=== PATIENT | male | born 1945 | race African-American/Black ===

== ENCOUNTER 2017-08-28 15:34 | Emergency (ER) | payer MEDICARE ==
[2017-08-28 16:20] LABS: #Basophils 0.1 thou/uL (0.0-0.2); #Eosinphils 0.2 thou/uL (0.0-0.7); #Lymphocytes 1.6 thou/uL (1.20-3.40); #Monocytes 0.7 thou/uL (0.11-0.59); #Neutrophils 3.9 thou/uL (1.40-6.50); %Basophils 1.2 % (0.0-1.0); %Eosinophils 2.6 % (0.0-10.0); %Lymphocytes 24.9 % (21.0-51.0); %Monocytes 10.1 % (0.0-10.0); %Neutrophils 61.3 % (42.0-75.0); Hemoglobin 13.1 g/dL (14.0-18.0); Mean Corpuscular HGB CONC 32.2 g/dL (32.0-36.0); Mean Corpuscular Hemoglobin 30.5 pg (27.0-31.0); Mean Corpuscular Volume 94.6 fl (80.0-94.0); Mean Platelet Volume 6.8 fL (7.4-10.4); Platelet Count 271 thou/uL (130-400); RBC Distribution Width 12.1 % (11.5-14.5); White Blood Cell (WBC) Count 6.4 thou/uL (4.8-10.8)
[2017-08-28 16:39] LABS: ALT (SGPT) 16 U/L (8-55); AST (SGOT) 17 U/L (5-34); Albumin 4.7 g/dL (3.4-4.8); Alkaline Phosphatase 86 U/L (40-150); Anion Gap 11 mmol/L (10-20); BUN (Urea Nitrogen) 19 mg/dL (8.4-25.7); Bilirubin, Total 0.8 mg/dL (0.2-1.2); CK (CPK) 196 U/L (30-200); Calc. Creatinine Clearance 0 mL/min (70-130); Carbon Dioxide 29 mmol/L (23-31); Chloride 104 mmol/L (98-107); Estimated GFR-MDRD 74; Globulin 3.5 g/dL (2.4-3.5); Glucose 125 mg/dL (80-115); Potassium 3.8 mmol/L (3.5-5.1); Protein, Total 8.2 g/dL (5.8-8.1); Sodium 140 mmol/L (136-145)
[2017-08-28 16:43] LABS: Troponin I Less than 0.010 ng/mL (< 0.028)
--- NOTE | 2017-08-28 17:30 | RAD ---
FRONTAL VIEW CHEST: CLINICAL HISTORY: Chest pain. COMPARISON: 09/10/2016 FINDINGS: A left-sided cardiac pacing device remains in place. There is no consolidation or effusion. The car diac silhouette is stable. No additional significant interval change. IMPRESSION: Stable chest. POS: [facility]
[2017-08-28 20:11] LABS: Troponin I Less than 0.010 ng/mL (< 0.028)
--- NOTE | 2017-10-10 12:46 | EKG ---
Test Reason : CHEST PAIN Blood Pressure : / mmHG Vent. Rate : 066 BPM Atrial Rate : 326 BPM P-R Int : 000 ms QRS Dur : 142 ms QT Int : 436 ms P-R-T Axes : 000 -75 061 degrees QTc Int : 457 ms Demand pacemaker; interpretation is based on intrinsic rhythm Atrial fibrillation with premature ventricular or aberrantly conducted complexes Left axis deviation Right bundle branch block Abnormal ECG Confirmed by SARAVANAN HARE, NIKKI ([id number]), tape editor AMINAH EDWARDS ([id number]) on 10/10/2017 12:45:40 PM Referred By: Confirmed By:NIKKI COE MD
== END 2017-08-28 20:36 | disposition home or self-care (01) ==
LOC: ERS 15:34
DX: R07.9 Chest pain, unspecified (principal); E11.9 Type 2 diabetes mellitus without complications; E78.5 Hyperlipidemia, unspecified; I10 Essential (primary) hypertension; I69.30 Unspecified sequelae of cerebral infarction; Z79.84 Long term (current) use of oral hypoglycemic drugs; Z79.82 Long term (current) use of aspirin; Z79.899 Other long term (current) drug therapy
CPT/HCPCS: 36415; 71045; 80053; 82553; 84484; 85025; 93005

== ENCOUNTER 2017-10-01 17:47 | Emergency (ER) | payer MEDICARE ==
[2017-10-01] MEDS ORDERED: Ondansetron ODT 4 MG TAB ONE (18:33)
[2017-10-01] MEDS ORDERED: Morphine 4 MG/ML VIAL ONE (18:33)
[2017-10-01 18:58] LABS: Hemoglobin 13.1 g/dL (14.0-18.0); Mean Corpuscular HGB CONC 32.5 g/dL (32.0-36.0); Mean Corpuscular Hemoglobin 29.7 pg (27.0-31.0); Mean Corpuscular Volume 91.6 fl (80.0-94.0); Mean Platelet Volume 7.3 fL (7.4-10.4); Platelet Count 196 thou/uL (130-400); Red Blood Cell (RBC) Count 4.39 mill/uL (4.70-6.10); White Blood Cell (WBC) Count 16.4 thou/uL (4.8-10.8)
[2017-10-01 19:06] LABS: INR-International Normal Ratio 2.5; Prothrombin Time 28.3 SEC (12.0-14.7)
[2017-10-01 19:18] LABS: ALT (SGPT) 14 U/L (8-55); AST (SGOT) 18 U/L (5-34); Albumin 4.6 g/dL (3.4-4.8); Alkaline Phosphatase 82 U/L (40-150); Anion Gap 18 mmol/L (10-20); BUN (Urea Nitrogen) 21 mg/dL (8.4-25.7); Bilirubin, Total 1.6 mg/dL (0.2-1.2); Calc. Creatinine Clearance 0 mL/min (70-130); Calcium 10.2 mg/dL (7.8-10.44); Carbon Dioxide 24 mmol/L (23-31); Chloride 100 mmol/L (98-107); Estimated GFR-MDRD 68; Globulin 4.1 g/dL (2.4-3.5); Glucose 169 mg/dL (80-115); Potassium 3.6 mmol/L (3.5-5.1); Protein, Total 8.7 g/dL (5.8-8.1); Sodium 138 mmol/L (136-145)
[2017-10-01 19:19] LABS: Band 2 % (5-11); Lymphocytes 2 % (21-51); MDiff Complete? YES; Monocytes 2 % (0-10); Neutrophil 94 % (42-75); PLT Morphology Comment Appears Adequate
--- NOTE | 2017-10-01 22:27 | ULT ---
TESTICULAR ULTRASOUND: Date: 10/01/17 INDICATION: Scrotal swelling. TECHNIQUE: Lovett scale, color Doppler, and spectral Doppler images were obtained of the testicles. FINDINGS: Right testicle measures 4.8 x 2.3 x 2.1 cm. Left testicle measures 4.5 x 1.8 x 2.7 cm. There is incre ased vascular flow to the right testicle, as well as the right epididymis. Mildly septated cyst is se en within the left epididymal head measuring 1.3 cm. There is normal vascular flow to the left testic le. Incidental note is made of a small right hydrocele. IMPRESSION: 1. Findings of right epididymoorchitis with small right hydrocele. 2. Left epididymal head cyst. POS: [facility]
== END 2017-10-01 23:03 | disposition home or self-care (01) ==
LOC: ERS 17:47
DX: N45.1 Epididymitis (principal); N50.3 Cyst of epididymis; N43.3 Hydrocele, unspecified; E11.9 Type 2 diabetes mellitus without complications; E78.5 Hyperlipidemia, unspecified; I10 Essential (primary) hypertension; Z86.73 Personal history of transient ischemic attack (TIA), and cerebral infarction without residual deficits; Z79.84 Long term (current) use of oral hypoglycemic drugs; Z79.899 Other long term (current) drug therapy
CPT/HCPCS: 36415; 76870; 80053; 83605; 85025; 85610; 85730; 86850; 86900; 86901; 93005; 93976; 96361; 96374; J2270; Q0162

== ENCOUNTER 2017-11-12 13:40 | Emergency (ER) | payer MEDICARE ==
[2017-11-12 15:36] LABS: Bilirubin Negative (Negative); Blood, Urine Moderate (Negative); Clarity CLOUDY (Clear); Glucose, Urine (Dipstick) Negative (Negative); Leukocyte Large (Negative); Nitrite Positive (Negative); Protein, Urine (Dipstick) 30 mg/dL (Neg-Trace); Specific Gravity, Urine 1.018 (1.002-1.036)
[2017-11-12 15:38] LABS: Bacteria/HPF 4+ HPF (None Seen); Pathc Cast-AUWi Flag 0.29 (0-2.49); Squamous Epithelial 0-3 HPF (0-3)
[2017-11-12 16:28] LABS: Hemoglobin 12.5 g/dL (14.0-18.0); Mean Corpuscular HGB CONC 34.2 g/dL (32.0-36.0); Mean Corpuscular Hemoglobin 30.9 pg (27.0-31.0); Mean Corpuscular Volume 90.4 fL (78.0-98.0); Mean Platelet Volume 6.6 fL (7.4-10.4); Platelet Count 184 thou/uL (130-400); RBC Distribution Width 11.8 % (11.5-14.5); Red Blood Cell (RBC) Count 4.04 mill/uL (4.70-6.10); White Blood Cell (WBC) Count 8.3 thou/uL (4.8-10.8)
[2017-11-12 16:46] LABS: ALT (SGPT) 10 U/L (8-55); AST (SGOT) 13 U/L (5-34); Albumin 4.3 g/dL (3.4-4.8); Alkaline Phosphatase 79 U/L (40-150); Anion Gap 15 mmol/L (10-20); BUN (Urea Nitrogen) 13 mg/dL (8.4-25.7); Bilirubin, Total 1.3 mg/dL (0.2-1.2); Calc. Creatinine Clearance 0 mL/min (70-130); Calcium 9.6 mg/dL (7.8-10.44); Carbon Dioxide 24 mmol/L (23-31); Chloride 105 mmol/L (98-107); Estimated GFR-MDRD 79; Globulin 3.4 g/dL (2.4-3.5); Glucose 136 mg/dL (80-115); Potassium 3.5 mmol/L (3.5-5.1); Protein, Total 7.7 g/dL (5.8-8.1); Sodium 140 mmol/L (136-145)
[2017-11-12 16:48] LABS: Band 18 % (5-11); Eosinophils 1 % (0-10); Lymphocytes 4 % (21-51); MDiff Complete? YES; Monocytes 5 % (0-10); Neutrophil 70 % (42-75); Reactive Lymphocytes 2 % (0-10)
[2017-11-12] MEDS ORDERED: cefTRIAXone\\ROCEPHIN 1 GM VIAL ONE (17:07)
--- NOTE | 2017-11-12 19:07 | ULT ---
BILATERAL TESTICULAR ULTRASOUND WITH DOPPLER: (Lovett scale, color flow, and spectral Doppler) Date: 11/12/17 HISTORY: Testicular pain. FINDINGS: The right testis measures 2.9 x 3.6 x 1.7 cm. The left testis measures 2.7 x 3.5 x 1.8 cm. No testicu lar mass or microlithiasis is seen. No hydroceles are noted on either side. The right epididymis measures 1.0 x 1.1 cm. The left epididymis measures 1.4 x 1.6 cm. There are garo cent cysts in the left epididymal head measuring 9.0 and 8.0 mm, respectively. This together may repr esent a septated cyst. There is increased flow in the right epididymis. Symmetric flow is seen to bot h testicles. There are extratesticular tortuous vascular structures with increased flow during Valsalva consistent with bilateral varicoceles. IMPRESSION: 1. Right epididymitis. 2. Left epididymal head cysts. 3. Bilateral varicoceles. POS: [facility]
[2017-11-15 05:15] LABS: Chlamydia trachomatis by NAA Negative (Negative)
== END 2017-11-12 19:48 | disposition home or self-care (01) ==
LOC: ERS 13:40
DX: N45.1 Epididymitis (principal); E11.9 Type 2 diabetes mellitus without complications; E78.5 Hyperlipidemia, unspecified; I10 Essential (primary) hypertension; Z86.73 Personal history of transient ischemic attack (TIA), and cerebral infarction without residual deficits; Z79.899 Other long term (current) drug therapy; Z79.01 Long term (current) use of anticoagulants
CPT/HCPCS: 36415; 76870; 80053; 81003; 81015; 85025; 87077; 87086; 87186; 87491; 87591; 93976; 96365; J0696

== ENCOUNTER 2018-07-26 16:43 | Emergency (ER) | payer MEDICARE ==
[2018-07-26 19:33] LABS: #Eosinphils 0.1 thou/uL (0.0-0.7); #Lymphocytes 1.8 thou/uL (1.20-3.40); #Monocytes 0.6 thou/uL (0.11-0.59); #Neutrophils 3.9 thou/uL (1.40-6.50); %Basophils 0.4 % (0.0-1.0); %Eosinophils 2.1 % (0.0-10.0); %Lymphocytes 28.5 % (21.0-51.0); %Monocytes 8.6 % (0.0-10.0); %Neutrophils 60.4 % (42.0-75.0); Hemoglobin 12.4 g/dL (14.0-18.0); Mean Corpuscular HGB CONC 31.8 g/dL (32.0-36.0); Mean Corpuscular Hemoglobin 30.5 pg (27.0-31.0); Platelet Count 235 thou/uL (130-400); Red Blood Cell (RBC) Count 4.07 mill/uL (4.70-6.10); White Blood Cell (WBC) Count 6.4 thou/uL (4.8-10.8)
--- NOTE | 2018-07-26 19:41 | RAD ---
CHEST ONE VIEW: 07/26/18 HISTORY: Pain. COMPARISON: 09/10/16. FINDINGS: Left sided transvenous pacemaker with lead position in the right atrium and right ventricle. Atherosc lerosis of the aorta. Normal cardiac silhouette. No masses or consolidation. No pneumothorax or osseo us abnormalities. IMPRESSION: No acute cardiopulmonary process. POS: [facility]
[2018-07-26 19:56] LABS: ALT (SGPT) 13 U/L (8-55); AST (SGOT) 16 U/L (5-34); Albumin 4.4 g/dL (3.4-4.8); Alkaline Phosphatase 73 U/L (40-150); Anion Gap 14 mmol/L (10-20); BUN (Urea Nitrogen) 15 mg/dL (8.4-25.7); Calc. Creatinine Clearance 0 mL/min (70-130); Calcium 10.2 mg/dL (7.8-10.44); Carbon Dioxide 28 mmol/L (23-31); Chloride 105 mmol/L (98-107); Estimated GFR-MDRD 75; Globulin 3.5 g/dL (2.4-3.5); Glucose 94 mg/dL (83-110); Protein, Total 7.9 g/dL (5.8-8.1); Sodium 143 mmol/L (136-145)
[2018-07-26] MEDS ORDERED: cloNIDine 0.1 MG TAB ONE ×2 (21:10→22:07)
[2018-07-26] MEDS ORDERED: Furosemide 20 MG/2 ML VIAL ONE (22:07)
== END 2018-07-27 00:24 | disposition home or self-care (01) ==
LOC: ERS 16:43
DX: I10 Essential (primary) hypertension (principal); E11.9 Type 2 diabetes mellitus without complications; E78.5 Hyperlipidemia, unspecified; Z86.73 Personal history of transient ischemic attack (TIA), and cerebral infarction without residual deficits; Z79.84 Long term (current) use of oral hypoglycemic drugs; Z79.01 Long term (current) use of anticoagulants; Z79.82 Long term (current) use of aspirin; Z79.899 Other long term (current) drug therapy
CPT/HCPCS: 36415; 71045; 80053; 84484; 85025; 93005; J1940

== ENCOUNTER 2019-05-10 10:03 | Outpatient (CLI) | payer MEDICARE ==
--- NOTE | 2019-05-10 10:32 | RAD ---
XR Shoulder Rt Ltd Survey History: Acute pain Comparison: None. Findings: Advanced degenerative disease right glenohumeral joint with large osteophyte formation, cor tical sclerosis, and subcortical cyst formation. Moderate degenerative disease acromioclavicular joint. Ribs are intact. Impression: High-grade degenerative disease glenohumeral joint.
--- NOTE | 2019-05-10 10:32 | RAD ---
EXAM: XR Humerus Rt 2 View STANDARD PROVIDED CLINICAL HISTORY: Pain FINDINGS: There is no evidence for fracture or other acute osseous abnormality. Alignment appears anatomic. Adv anced glenohumeral degenerative arthrosis. IMPRESSION: No evidence for an acute osseous abnormality. If there is persistent clinical concern, conservative m anagement and follow-up imaging advised.
== END 2019-05-10 10:04 | disposition home or self-care (01) ==
LOC: BICRAD 10:03
PROVIDERS: ATTEND Family Medicine
DX: M25.511 Pain in right shoulder (principal); M19.011 Primary osteoarthritis, right shoulder
CPT/HCPCS: 36415; 80053; 80061

== ENCOUNTER 2019-11-19 10:00 | Outpatient (CLI) | payer MEDICARE ==
--- NOTE | 2019-11-19 11:04 | RAD ---
EXAM: Chest 2 views: HISTORY: Atrial fibrillation COMPARISON: 07/26/2018 FINDINGS: There is a normal-sized cardiomediastinal silhouette. The pacemaker is unchanged in position. Athero sclerotic calcifications are seen in the aorta. There is no evidence of consolidation, mass, or pleural effusion. The bones are unremarkable. IMPRESSION: No evidence of acute cardiopulmonary disease
== END 2019-11-19 10:01 | disposition home or self-care (01) ==
LOC: RAD 10:00
PROVIDERS: ATTEND Internal Medicine Cardiovascular Disease
DX: I48.0 Paroxysmal atrial fibrillation (principal); E78.00 Pure hypercholesterolemia, unspecified
CPT/HCPCS: 36415; 71046; 80053; 80061; 84443

== ENCOUNTER 2020-03-14 10:07 | Inpatient (IN) | payer MEDICARE, OTHER ==
--- NOTE | 2020-03-14 10:36 | CT ---
CT Brain WO Con History: Altered mental status Comparison: CT brain 2017 Findings: Extensive periventricular and deep white matter microangiopathic changes. No acute hemorrha ge or territorial infarction. Old lacunar infarcts bilaterally. No midline shift. No mass effect. Calvarium is intact. Paranasal sinuses and mastoids are relatively clear. Impression: Chronic findings. No acute intracranial abnormality.
[2020-03-14 10:37] LABS: #Eosinphils 0.2 thou/uL (0.0-0.7); #Lymphocytes 1.5 thou/uL (1.20-3.40); #Monocytes 0.4 thou/uL (0.11-0.59); #Neutrophils 3.7 thou/uL (1.40-6.50); %Basophils 0.5 % (0.0-1.0); %Lymphocytes 25.2 % (21.0-51.0); %Monocytes 7.7 % (0.0-10.0); %Neutrophils 63.6 % (42.0-75.0); Mean Corpuscular Hemoglobin 31.4 pg (27.0-31.0); Mean Platelet Volume 7.5 fL (7.4-10.4); Platelet Count 231 thou/uL (130-400); RBC Distribution Width 12.4 % (11.5-14.5); Red Blood Cell (RBC) Count 3.82 mill/uL (4.70-6.10); White Blood Cell (WBC) Count 5.8 thou/uL (4.8-10.8)
[2020-03-14 10:44] LABS: INR-International Normal Ratio 2.8; PTT 50.1 sec (22.9-36.1); Prothrombin Time 29.8 sec (12.0-14.7)
[2020-03-14 11:04] LABS: ALT (SGPT) 17 U/L (8-55); AST (SGOT) 24 U/L (5-34); Albumin 4.6 g/dL (3.4-4.8); Alkaline Phosphatase 72 U/L (40-110); Anion Gap 16 mmol/L (10-20); BUN (Urea Nitrogen) 26 mg/dL (8.4-25.7); Bilirubin, Total 0.6 mg/dL (0.2-1.2); CK (CPK) 603 U/L (30-200); Calc. Creatinine Clearance 0 mL/min (70-130); Calcium 9.7 mg/dL (7.8-10.44); Carbon Dioxide 21 mmol/L (23-31); Chloride 105 mmol/L (98-107); Estimated GFR-MDRD 54; Globulin 3.8 g/dL (2.4-3.5); Glucose 131 mg/dL (83-110); Potassium 4.5 mmol/L (3.5-5.1); Protein, Total 8.4 g/dL (5.8-8.1); Sodium 137 mmol/L (136-145)
--- NOTE | 2020-03-14 11:10 | RAD ---
EXAM: CHEST ONE VIEW HISTORY: Altered mental status COMPARISON: 07/26/2018 FINDINGS: Dual-lead left subclavian cardiac pacemaking device is again noted in place. Cardiac silhouette is ma gnified by projection but stable in size. Pulmonary vasculature is within normal limits. The lungs are clear. Vascular calcifications are seen in the thoracic aorta. Prominent left glenohumeral osteoa rthropathy is present. Chest is stable compared to prior exam. IMPRESSION: No acute cardiopulmonary process.
[2020-03-14] MEDS ORDERED: Aspirin Chewable 81 MG TAB ONE (11:25)
--- NOTE | 2020-03-14 12:34 | RAD ---
Exam: XR Hip Rt 2-3 View HISTORY: Patient found on floor. Right-sided weakness. Fall. COMPARISON: None FINDINGS: There is incomplete imaging of a retrograde intramedullary polly in the right femoral diaphysis transfi jennifer an incompletely imaged healed fracture of the mid right femoral diaphysis. No fracture or dislocation is seen involving the right hip. There is mild right hip osteoarthritis present. Vascular calcifications are seen in the femoral arteries. Phleboliths overlie the right hemipelvis. IMPRESSION: No acute osseous abnormality is identified.
--- NOTE | 2020-03-14 12:51 | PDOC.HHP ---
Hospitalist HPI - History of Present Illness Fall History of Present Illness: This is 74-year-old male patient with history of History of atrial flutter with variable AV block, has pacemaker diabetes mellitus, hyperlipidemia, hypertension, CVA with residual right hemiparesis, presents today after he was noted to have fallen several times within the past 3 days. He apparently fell earlier today about 4 AM however was found by his neighbors and went back to sleep. Earlier this morning he got up again to go to the restroom when he fell again and this time was found by his sister. His sister was in the room with him at the time of my evaluation. She provided most of the history. Next She activated EMS and brought him to the ED for further evaluation. He denied any associated chest pain, shortness of breath or palpitations prior to the fall. He denies any loss of consciousness he notes having a stumble given his right hemiparesis with resultant dragging his feet when he moves around. He does not denied any increasing weakness recently. He denies no anorexia nausea vomiting or diarrhea. On arrival vitals were BP 210/96 at the time of my evaluation improved to systolic of 173. Pulse 66, saturation was 100% on room air. Temperature was 98.1. Labs showed CPK of 603, BUN 26, creatinine 1.541.38 on 07/29/2019. CT scan of his head showed no acute intracranial events, chest x-ray also showed no acute cardiopulmonary processes. Received aspirin 324 mg in the ED. Hospitalist team was consulted for admission. Hospitalist ROS - Review of Systems Constitutional: denies: fever, chills, sweats, weakness Respiratory: denies: cough, shortness of breath, hemoptysis Cardiovascular: denies: chest pain, palpitations, orthopnea, paroxysmal noc. dyspnea Gastrointestinal: denies: nausea, vomiting, abdominal pain Genitourinary: reports: incontinence (Aspirin 81 mg daily Await updated list. Allergies: No known drug allergies). denies: dysuria Neurological: reports: weakness, incoordination. denies: numbness, change in speech, confusion Hospitalist History - Past Medical History Cardiac: reports: AFIB Pulmonary: reports: CVA/TIA/stroke Endocrine: reports: Diabetes - Past Surgical History Other Surgical History: Pacemaker placement. - Family History Other Family History: Non contributary - Social History Living Situation: Alone - Exam General Appearance: awake alert ENT: normocephalic atraumatic, no oropharyngeal lesions, moist mucosa Neck: symmetric, no thyromegaly Heart: RRR, no murmur, no gallops, no rubs Respiratory: no wheezes, no rales, no ronchi, normal chest expansion Gastrointestinal: soft, non-tender, non-distended, normal bowel sounds Extremities: no cyanosis, no clubbing, no edema Neurological - other findings: Right upper lobe limb hemiparesis Psychiatric: A&O x 3 Hospitalist Results - Labs Result Diagrams: 03/16/20 04:34 03/16/20 04:34 Lab results: WBC 5.8 thou/uL (4.8-10.8) 03/14/20 10:23 Hgb 12.0 g/dL (14.0-18.0) L 03/14/20 10:23 Hct 36.3 % (42.0-52.0) L 03/14/20 10:23 MCV 95.0 fL (78.0-98.0) 03/14/20 10:23 Plt Count 231 thou/uL (130-400) 03/14/20 10:23 Neutrophils % 63.6 % (42.0-75.0) 03/14/20 10:23 Sodium 137 mmol/L (136-145) 03/14/20 10:23 Potassium 4.5 mmol/L (3.5-5.1) 03/14/20 10:23 Chloride 105 mmol/L (98-107) 03/14/20 10:23 Carbon Dioxide 21 mmol/L (23-31) L 03/14/20 10:23 BUN 26 mg/dL (8.4-25.7) H 03/14/20 10:23 Creatinine 1.54 mg/dL (0.7-1.3) H 03/14/20 10:23 Glucose 131 mg/dL (83-110) H 03/14/20 10:23 Calcium 9.7 mg/dL (7.8-10.44) 03/14/20 10:23 Total Bilirubin 0.6 mg/dL (0.2-1.2) 03/14/20 10:23 AST 24 U/L (5-34) 03/14/20 10:23 ALT 17 U/L (8-55) 03/14/20 10:23 Alkaline Phosphatase 72 U/L (40-110) 03/14/20 10:23 Creatine Kinase 603 U/L (30-200) H 03/14/20 10:23 Troponin I Less than 0.010 ng/mL (< 0.028) 03/14/20 10:23 Serum Total Protein 8.4 g/dL (5.8-8.1) H 03/14/20 10:23 Albumin 4.6 g/dL (3.4-4.8) 03/14/20 10:23 Hospitalist H&P A/P - Plan Plan: This a 74-year-old male patient with history of A. fib status post pacemaker, stroke status post residual right-sided paresis presents with recurrent falls concerning for stroke. Recurrent falls Unclear etiology Possibly due to weakness/hemiparesis We will admit monitor on telemetry to rule out any arrhythmias We will interrogate his pacemaker Neurochecks Fall precautions PT OT evaluation Possible placement for rehab. Hypertensive urgency Presented BP 210/96 Currently systolic in the 170s Start amlodipine Monitor BP Possible CVA CT negative Go ahead and do an MRI Monitor with neurochecks Neuro consult if indicated. For now continue on aspirin Cardiac arrhythmia status post pacemaker Monitor on telemetry Pacemaker interrogation Close monitoring. Diabetes mellitus Correctional dosing insulin CKD Continue BMP monitoring DVT prophylaxisLovenox CODE STATUS full code
[2020-03-14] MEDS ORDERED: HumaLOG 300 UNITS/3 ML VIAL SC PRN (13:46)
[2020-03-14] MEDS ORDERED: Dextrose 50% Abboject 50 ML SYRINGE SLOW IVP PRN (13:46)
[2020-03-14] MEDS ORDERED: Dextrose 5% in Water 1,000 ML IV PRN (13:46)
[2020-03-14] MEDS ORDERED: Amlodipine 10 MG TAB PO SCH (14:00)
[2020-03-14 16:28] LABS: SARS-CoV-2 MS2 Positive; SARS-CoV-2 N Gene Negative; SARS-CoV-2 S Gene Negative; SARS-CoV-2 by NAA Not Detected (NotDetected); SARS-CoV-2 orf1ab Negative
[2020-03-14 17:07] VITALS: BMI 22.4
[2020-03-14] MEDS: Enoxaparin Sodium 40 MG/0.4 ML SYRINGE SC SCH ×2 (21:01→21:05)
[2020-03-15 04:54] LABS: #Basophils 0.1 thou/uL (0.0-0.2); #Eosinphils 0.2 thou/uL (0.0-0.7); #Lymphocytes 1.3 thou/uL (1.20-3.40); #Monocytes 0.5 thou/uL (0.11-0.59); #Neutrophils 2.4 thou/uL (1.40-6.50); %Basophils 1.6 % (0.0-1.0); %Lymphocytes 29.4 % (21.0-51.0); %Monocytes 10.8 % (0.0-10.0); %Neutrophils 54.2 % (42.0-75.0); Hemoglobin 10.5 g/dL (14.0-18.0); Mean Corpuscular Hemoglobin 31.4 pg (27.0-31.0); Mean Corpuscular Volume 95.2 fL (78.0-98.0); Mean Platelet Volume 6.8 fL (7.4-10.4); Platelet Count 217 thou/uL (130-400); RBC Distribution Width 12.3 % (11.5-14.5); Red Blood Cell (RBC) Count 3.35 mill/uL (4.70-6.10); White Blood Cell (WBC) Count 4.4 thou/uL (4.8-10.8)
[2020-03-15 05:17] LABS: Anion Gap 12 mmol/L (10-20); BUN (Urea Nitrogen) 28 mg/dL (8.4-25.7); CK (CPK) 381 U/L (30-200); Calc. Creatinine Clearance 39 mL/min (70-130); Calcium 8.9 mg/dL (7.8-10.44); Carbon Dioxide 24 mmol/L (23-31); Chloride 107 mmol/L (98-107); Estimated GFR-MDRD 58; Glucose 93 mg/dL (83-110); Potassium 4.5 mmol/L (3.5-5.1); Sodium 138 mmol/L (136-145)
[2020-03-15] MEDS ORDERED: Ondansetron ODT 4 MG TAB PO PRN (07:24)
[2020-03-15] MEDS ORDERED: Loperamide HCl 2 MG CAP PO PRN (07:24)
[2020-03-15] MEDS ORDERED: Loratadine 10 MG TAB PO PRN (07:24)
[2020-03-15] MEDS ORDERED: Diabetic Tussin 200 MG/10 ML UDCUP PO PRN (07:24)
[2020-03-15] MEDS ORDERED: Sodium Chloride 0.65% Nasal 44 ML BOT EA NARE PRN (07:24)
[2020-03-15] MEDS ORDERED: hydrALAZINE 20 MG/ML VIAL SLOW IVP PRN (07:24)
[2020-03-15] MEDS ORDERED: Senokot S 8.6-50 MG TAB PO PRN (07:24)
[2020-03-15] MEDS ORDERED: Cepastat Lozenges 1 LOZ PO PRN (07:24)
[2020-03-15] MEDS ORDERED: Calcium Carbonate 500 MG ChewTAB PO PRN (07:24)
[2020-03-15] MEDS ORDERED: Bisacodyl 5 MG TAB PO PRN (07:24)
[2020-03-15] MEDS ORDERED: Ondansetron PF 4 MG/2 ML Vial IVP PRN (07:24)
[2020-03-15] MEDS ORDERED: Zolpidem Tartrate 5 MG TAB PO PRN (07:24)
[2020-03-15] MEDS ORDERED: Insulin Regular 300 UNITS/3 ML VIAL SC PRN (07:25)
[2020-03-15] MEDS ORDERED: HumaLOG 300 UNITS/3 ML VIAL SC PRN (07:25)
--- NOTE | 2020-03-15 09:18 | PDOC.HOSPP ---
- Subjective Encounter Date: 03/15/20 Encounter Time: 07:00 Subjective: Patient seen and examined bedside today, patient is doing much better, he is alert and awake, - Objective Vital Signs & Weight: Vital Signs (12 hours) Temp Pulse Resp BP Pulse Ox 03/15/20 07:56 97.8 F 60 18 151/78 H 99 03/15/20 04:00 98.0 F 62 16 165/86 H 98 Weight Weight 135 lb I&O: 03/14/20 03/15/20 03/16/20 06:59 06:59 06:59 Intake Total 240 Balance 240 Result Diagrams: 03/15/20 04:43 03/15/20 04:43 Additional Labs: Accuchecks 03/14/20 03/14/20 16:39 10:20 POC Glucose 151 H 108 H Radiology Reviewed by me: Yes EKG Reviewed by me: Yes Hospitalist ROS - Review of Systems Constitutional: denies: fever, chills, sweats, weakness, malaise, other ENT: denies: ear pain, ear discharge, nose pain, nose discharge, nose congestion, mouth pain, mouth swelling, throat pain, throat swelling, other Respiratory: denies: cough, dry, shortness of breath, hemoptysis, SOB with excertion, pleuritic pain, sputum, wheezing, other Cardiovascular: denies: chest pain, palpitations, orthopnea, paroxysmal noc. dyspnea, edema, light headedness, other Gastrointestinal: denies: nausea, vomiting, abdominal pain, diarrhea, constipation, melena, hematochezia, other Genitourinary: denies: dysuria, frequency, incontinence, hematuria, retention, other Musculoskeletal: denies: neck pain, shoulder pain, arm pain, back pain, hand p ain, leg pain, foot pain, other Skin: denies: rash, lesions, elena, bruising, other - Medication Medications: Active Medications Generic Name Dose Route Start Last Admin Trade Name Freq PRN Reason Stop Dose Admin Enoxaparin Sodium 40 mg 03/14/20 21:00 03/14/20 21:05 Enoxaparin Sodium 40 Mg/0.4 Ml Syringe SC Not Given 2100 SUNG - Exam General Appearance: NAD, awake alert Eye: PERRL, anicteric sclera Eye - other findings: Legally blind ENT: normocephalic atraumatic, no oropharyngeal lesions Neck: supple, symmetric, no JVD, no thyromegaly Heart: RRR, no murmur, no gallops, no rubs Respiratory: CTAB, no wheezes, no rales, no ronchi Gastrointestinal: soft, non-tender, non-distended, normal bowel sounds Extremities: no cyanosis, no clubbing Skin: normal turgor, no lesions Neurological: no focal deficits Musculoskeletal: normal tone, normal strength Psychiatric: normal affect, normal behavior Hosp A/P (1) Hypertensive urgency Code(s): I16.0 - HYPERTENSIVE URGENCY Status: Acute (2) Recurrent falls Code(s): R29.6 - REPEATED FALLS Status: Acute (3) Atrial fibrillation Code(s): I48.91 - UNSPECIFIED ATRIAL FIBRILLATION Status: Chronic Qualifiers: Atrial fibrillation type: unspecified chronic Qualified Code(s): I48.20 - Chronic atrial fibrillation, unspecified; I48.2 - Chronic atrial fibrillation (4) Pacemaker Code(s): Z95.0 - PRESENCE OF CARDIAC PACEMAKER Status: Chronic (5) Chronic anticoagulation Code(s): Z79.01 - SHELTER (CURRENT) USE OF ANTICOAGULANTS Status: Chronic (6) History of CVA (cerebrovascular accident) Code(s): Z86.73 - PRSNL HX OF TIA (TIA), AND CEREB INFRC W/O RESID DEFICITS Status: Chronic (7) Diabetes type 2, controlled Code(s): E11.9 - TYPE 2 DIABETES MELLITUS WITHOUT COMPLICATIONS Status: Chronic Qualifiers: Diabetes mellitus ad terminal makeup operator insulin use: with ad terminal makeup operator use - Plan old records reviewed/req, PT/OT We will reconcile his home medication when verified Continue PT OT Echo and MRI as a part of stroke work-up Medication reviewed and continue provide symptomatic and supportive care We will repeat labs including hemoglobin A1c and lipid profile tomorrow If MRI and echo are unremarkable then will transfer him to medical floor We will adjust medication Neuro check every 4 hourly, doubt patient has any new stroke
[2020-03-15] MEDS: Amlodipine 10 MG TAB PO SCH (09:47)
[2020-03-15] MEDS: Famotidine 20 MG TAB PO SCH (09:47)
[2020-03-15] MEDS: Aspirin 81 mg Enteric Coated Tablet PO SCH (09:47)
[2020-03-15] MEDS: Enoxaparin Sodium 40 MG/0.4 ML SYRINGE SC SCH (20:23)
[2020-03-15] MEDS ORDERED: Atorvastatin Calcium 20 MG TAB PO SCH (21:00)
[2020-03-15] MEDS ORDERED: ALPRAZolam 0.25 MG TAB PO SCH (22:30)
[2020-03-16 04:43] LABS: #Basophils 0.1 thou/uL (0.0-0.2); #Eosinphils 0.2 thou/uL (0.0-0.7); #Lymphocytes 1.9 thou/uL (1.20-3.40); #Monocytes 0.8 thou/uL (0.11-0.59); #Neutrophils 4.8 thou/uL (1.40-6.50); %Basophils 1.2 % (0.0-1.0); %Eosinophils 1.9 % (0.0-10.0); %Lymphocytes 24.7 % (21.0-51.0); %Monocytes 10.1 % (0.0-10.0); Hemoglobin 11.8 g/dL (14.0-18.0); Mean Corpuscular HGB CONC 32.5 g/dL (32.0-36.0); Mean Corpuscular Hemoglobin 31.2 pg (27.0-31.0); Mean Corpuscular Volume 96.1 fL (78.0-98.0); Mean Platelet Volume 6.6 fL (7.4-10.4); Platelet Count 273 thou/uL (130-400); RBC Distribution Width 12.4 % (11.5-14.5); Red Blood Cell (RBC) Count 3.78 mill/uL (4.70-6.10); White Blood Cell (WBC) Count 7.8 thou/uL (4.8-10.8)
[2020-03-16 05:00] LABS: Hemoglobin A1c 6.4 % (4.0-6.0)
[2020-03-16 05:07] LABS: Anion Gap 16 mmol/L (10-20); BUN (Urea Nitrogen) 23 mg/dL (8.4-25.7); Calc. Creatinine Clearance 41 mL/min (70-130); Calcium 9.9 mg/dL (7.8-10.44); Carbon Dioxide 20 mmol/L (23-31); Cardiac Risk 3.3 (Less than 4.5); Chloride 106 mmol/L (98-107); Cholesterol 127 mg/dl (< 200 Desired); Estimated GFR-MDRD 61; Glucose 124 mg/dL (83-110); HDL Cholesterol 39 mg/dL (>60 Neg Risk); LDL Cholesterol, Calculated 74 mg/dL; Potassium 4.6 mmol/L (3.5-5.1); Sodium 137 mmol/L (136-145); Triglycerides 69 mg/dL (Less than 150)
[2020-03-16] MEDS: Famotidine 20 MG TAB PO SCH (08:42)
[2020-03-16] MEDS: Aspirin 81 mg Enteric Coated Tablet PO SCH (08:42)
[2020-03-16] MEDS: Amlodipine 10 MG TAB PO SCH (08:42)
--- NOTE | 2020-03-16 11:21 | PDOC.HOSPP ---
- Subjective Encounter Date: 03/16/20 Encounter Time: 07:00 Subjective: Patient seen and examined. No new complaints. No overnight events - Objective Vital Signs & Weight: Vital Signs (12 hours) Temp Pulse Resp BP Pulse Ox 03/16/20 08:42 61 03/16/20 07:00 97.7 F 59 L 16 137/77 99 03/16/20 03:25 97.7 F 62 20 137/73 97 03/15/20 23:25 98.2 F 66 20 111/69 97 Weight Weight 135 lb I&O: 03/15/20 03/16/20 03/17/20 06:59 06:59 06:59 Intake Total 240 440 480 Balance 240 440 480 Result Diagrams: 03/16/20 04:34 03/16/20 04:34 Additional Labs: Accuchecks 03/16/20 03/15/20 03/15/20 05:06 21:38 16:55 POC Glucose 123 H 135 H 126 H Hospitalist ROS - Review of Systems ENT: denies: ear pain, ear discharge, nose pain, nose discharge, nose congestion, mouth pain, mouth swelling, throat pain, throat swelling, other Respiratory: denies: cough, dry, shortness of breath, hemoptysis, SOB with excertion, pleuritic pain, sputum, wheezing, other Cardiovascular: denies: chest pain, palpitations, orthopnea, paroxysmal noc. dyspnea, edema, light headedness, other Gastrointestinal: denies: nausea, vomiting, abdominal pain, diarrhea, constipation, melena, hematochezia, other Genitourinary: denies: dysuria, frequency, incontinence, hematuria, retention, other - Medication Medications: Active Medications Generic Name Dose Route Start Last Admin Trade Name Freq PRN Reason Stop Dose Admin Amlodipine Besylate 10 mg 03/15/20 09:00 03/16/20 08:42 Amlodipine 10 Mg Tab PO 10 mg DAILY SUNG Administration Aspirin 81 mg 03/15/20 09:00 03/16/20 08:42 Aspirin 81 Mg Enteric Coated Tablet PO 81 mg DAILY SUNG Administration Atorvastatin Calcium 20 mg 03/15/20 21:00 03/15/20 20:23 Atorvastatin Calcium 20 Mg Tab PO 20 mg HS SUNG Administration Bisacodyl 10 mg 03/15/20 07:24 03/15/20 10:26 Bisacodyl 5 Mg Tab PO 10 mg DAILYPRN PRN Administration Constipation Enoxaparin Sodium 40 mg 03/14/20 21:00 03/15/20 20:23 Enoxaparin Sodium 40 Mg/0.4 Ml Syringe SC 40 mg 2100 SUNG Administration Famotidine 20 mg 03/15/20 09:00 03/16/20 08:42 Famotidine 20 Mg Tab PO 20 mg DAILY SUNG Administration Zolpidem Tartrate 5 mg 03/15/20 07:24 03/15/20 20:23 Zolpidem Tartrate 5 Mg Tab PO 5 mg HSPRN PRN Administration Insomnia - Exam General Appearance: NAD, awake alert Eye: PERRL, anicteric sclera ENT: normocephalic atraumatic, no oropharyngeal lesions Neck: supple, symmetric, no JVD, no thyromegaly Heart: RRR, no murmur, no gallops, no rubs Respiratory: no wheezes, no rales, no ronchi Gastrointestinal: soft, non-tender, non-distended, normal bowel sounds Extremities: no edema Skin: normal turgor, no lesions Neurological: no new deficit Neurological - other findings: Right-sided weakness Musculoskeletal: normal tone, normal strength Psychiatric: normal affect, normal behavior Hosp A/P (1) Hypertensive urgency Code(s): I16.0 - HYPERTENSIVE URGENCY Status: Acute (2) Recurrent falls Code(s): R29.6 - REPEATED FALLS Status: Acute (3) Atrial fibrillation Code(s): I48.91 - UNSPECIFIED ATRIAL FIBRILLATION Status: Chronic Qualifiers: Atrial fibrillation type: unspecified chronic Qualified Code(s): I48.20 - Chronic atrial fibrillation, unspecified; I48.2 - Chronic atrial fibrillation (4) Pacemaker Code(s): Z95.0 - PRESENCE OF CARDIAC PACEMAKER Status: Chronic (5) Chronic anticoagulation Code(s): Z79.01 - AVICULTURIST (CURRENT) USE OF ANTICOAGULANTS Status: Chronic (6) History of CVA (cerebrovascular accident) Code(s): Z86.73 - PRSNL HX OF TIA (TIA), AND CEREB INFRC W/O RESID DEFICITS Status: Chronic (7) Diabetes type 2, controlled Code(s): E11.9 - TYPE 2 DIABETES MELLITUS WITHOUT COMPLICATIONS Status: Chronic Qualifiers: Diabetes mellitus longterm insulin use: with longterm use (8) Glaucoma Code(s): H40.9 - UNSPECIFIED GLAUCOMA Status: Chronic - Plan old records reviewed/req, PT/OT, aids social worker His home medication has been reconciled Continue PT OT Social work for placement Echo result reviewed MRI pending
[2020-03-16] MEDS ORDERED: Rivaroxaban 10 MG TAB PO SCH (12:15)
[2020-03-16] MEDS: Timolol 0.5% Ophth Soln 5 ml Bottle EA EYE SCH ×2 (12:57→20:28)
[2020-03-16] MEDS: Brimonidine Tartrate 0.2% Ophth Soln 5 ml Bottle EA EYE SCH ×2 (12:58→20:27)
[2020-03-16] MEDS: metFORMIN 500 MG TAB PO SCH (16:57)
[2020-03-16] MEDS: hydrALAZINE 10 MG TAB PO SCH (16:57)
[2020-03-16] MEDS ORDERED: Lorazepam 1 MG TAB PO SCH (20:00)
[2020-03-16] MEDS ORDERED: Lorazepam 2 MG/ML VIAL SLOW IVP SCH (20:15)
[2020-03-16] MEDS: Mirtazapine 15 MG Soltab PO SCH (20:27)
[2020-03-16] MEDS: Atorvastatin Calcium 40 MG TAB PO SCH (20:27)
[2020-03-16] MEDS: Amiodarone 200 MG TAB PO SCH (20:27)
[2020-03-16] MEDS: Latanoprost 0.005% Ophth Soln 2.5 ml Bottle EA EYE SCH (20:28)
[2020-03-17] MEDS ORDERED: sitaGLIPtin Phosphate 25 MG TAB PO SCH (09:00)
[2020-03-17] MEDS: metFORMIN 500 MG TAB PO SCH ×3 (09:38→17:40)
[2020-03-17] MEDS: Alogliptin 6.25 MG TAB PO SCH ×2 (09:38→10:06)
[2020-03-17] MEDS: hydrALAZINE 10 MG TAB PO SCH ×3 (09:38→17:39)
[2020-03-17] MEDS: Amiodarone 200 MG TAB PO SCH ×3 (09:38→21:40)
[2020-03-17] MEDS: Ezetimibe 10 MG TAB PO SCH ×2 (09:39→10:05)
[2020-03-17] MEDS: Losartan/Hydrochlorothiazide 100 mg/25 mg Tablet PO SCH ×2 (09:39→10:05)
[2020-03-17] MEDS: Aspirin 81 mg Enteric Coated Tablet PO SCH ×2 (09:39→10:06)
[2020-03-17] MEDS: Famotidine 20 MG TAB PO SCH ×2 (09:39→10:05)
[2020-03-17] MEDS: Brimonidine Tartrate 0.2% Ophth Soln 5 ml Bottle EA EYE SCH ×2 (09:39→21:41)
[2020-03-17] MEDS: Timolol 0.5% Ophth Soln 5 ml Bottle EA EYE SCH ×2 (09:39→21:41)
--- NOTE | 2020-03-17 10:14 | PDOC.HOSPP ---
- Subjective Encounter Date: 03/17/20 Encounter Time: 07:00 Subjective: Patient seen and examined. No new complaints. No overnight events - Objective Vital Signs & Weight: Vital Signs (12 hours) Temp Pulse Resp BP Pulse Ox 03/17/20 07:56 97.8 F 60 15 99 03/17/20 04:38 97.5 F L 62 18 128/76 98 Weight Weight 135 lb I&O: 03/16/20 03/17/20 03/18/20 06:59 06:59 06:59 Intake Total 440 720 Balance 440 720 Result Diagrams: 03/16/20 04:34 03/16/20 04:34 Additional Labs: Accuchecks 03/17/20 03/16/20 03/16/20 06:13 20:51 16:43 POC Glucose 96 157 H 92 03/16/20 10:56 POC Glucose 177 H Radiology Reviewed by me: Yes EKG Reviewed by me: Yes (Pacemaker rhythm) Hospitalist ROS - Review of Systems ENT: denies: ear pain, ear discharge, nose pain, nose discharge, nose congestion, mouth pain, mouth swelling, throat pain, throat swelling, other Respiratory: denies: cough, dry, shortness of breath, hemoptysis, SOB with excertion, pleuritic pain, sputum, wheezing, other Cardiovascular: denies: chest pain, palpitations, orthopnea, paroxysmal noc. dyspnea, edema, light headedness, other Gastrointestinal: denies: nausea, vomiting, abdominal pain, diarrhea, con stipation, melena, hematochezia, other Genitourinary: denies: dysuria, frequency, incontinence, hematuria, retention, other Musculoskeletal: denies: neck pain, shoulder pain, arm pain, back pain, hand pain, leg pain, foot pain, other - Medication Medications: Active Medications Generic Name Dose Route Start Last Admin Trade Name Freq PRN Reason Stop Dose Admin Alogliptin Benzoate 12.5 mg 03/17/20 09:00 03/17/20 10:06 Alogliptin 6.25 Mg Tab PO Not Given DAILY [facility] Amiodarone HCl 200 mg 03/16/20 21:00 03/17/20 10:06 Amiodarone 200 Mg Tab PO Not Given BID SUNG Aspirin 81 mg 03/15/20 09:00 03/17/20 10:06 Aspirin 81 Mg Enteric Coated Tablet PO Not Given DAILY SUNG Atorvastatin Calcium 80 mg 03/16/20 21:00 03/16/20 20:27 Atorvastatin Calcium 40 Mg Tab PO 40 mg HS SUNG Administration Bisacodyl 10 mg 03/15/20 07:24 03/15/20 10:26 Bisacodyl 5 Mg Tab PO 10 mg DAILYPRN PRN Administration Constipation Brimonidine Tartrate 1 drop 03/16/20 09:00 03/17/20 09:39 Brimonidine Tartrate 0.2% Ophth Soln 5 Ml Bottle EA EYE 1 drop BID SUNG Administration Ezetimibe 10 mg 03/17/20 09:00 03/17/20 10:05 Ezetimibe 10 Mg Tab PO Not Given DAILY SUNG Famotidine 20 mg 03/15/20 09:00 03/17/20 10:05 Famotidine 20 Mg Tab PO Not Given DAILY SUNG HCTZ/Losartan Potassium 1 tab 03/17/20 09:00 03/17/20 10:05 Losartan/Hydrochlorothiazide 100 Mg/25 Mg Tablet PO Not Given DAILY SUNG Hydralazine HCl 10 mg 03/16/20 17:00 03/17/20 10:03 Hydralazine 10 Mg Tab PO Not Given BID-WM SUNG Insulin Human Lispro 0 units 03/15/20 07:25 03/16/20 13:24 Humalog 300 Units/3 Ml Vial SC 2 unit .MODERATE SLIDING SC PRN Administration Moderate Correctional Scale Latanoprost 1 drop 03/16/20 21:00 03/16/20 20:28 Latanoprost 0.005% Ophth Soln 2.5 Ml Bottle EA EYE 1 drop HS SUNG Administration Metformin HCl 500 mg 03/16/20 17:00 03/17/20 10:06 Metformin 500 Mg Tab PO Not Given BID-WM SUNG Mirtazapine 15 mg 03/16/20 21:00 03/16/20 20:27 Mirtazapine 15 Mg Soltab PO 15 mg HS SUNG Administration Timolol Maleate 1 drop 03/16/20 09:00 03/17/20 09:39 Timolol 0.5% Ophth Soln 5 Ml Bottle EA EYE 1 drop BID SUNG Administration Zolpidem Tartrate 5 mg 03/15/20 07:24 03/15/20 20:23 Zolpidem Tartrate 5 Mg Tab PO 5 mg HSPRN PRN Administration Insomnia - Exam General Appearance: NAD, awake alert General - other findings: Legally blind Eye: PERRL, anicteric sclera ENT: normocephalic atraumatic, no oropharyngeal lesions Neck: supple, symmetric, no JVD, no thyromegaly Heart: no murmur, no gallops, no rubs Respiratory: no wheezes, no rales, no ronchi Gastrointestinal: soft, non-tender, non-distended, normal bowel sounds Extremities: no cyanosis, no clubbing, no edema Skin: no lesions, no rashes Neurological: no new deficit Neurological - other findings: Right-sided weakness Musculoskeletal: normal tone, normal strength Psychiatric: normal affect, normal behavior Hosp A/P (1) Hypertensive urgency Code(s): I16.0 - HYPERTENSIVE URGENCY Status: Acute Plan: Blood pressure has been controlled, (2) Recurrent falls Code(s): R29.6 - REPEATED FALLS Status: Acute Plan: Suspecting from multifactorial etiology including his previous stroke, legally blind, and elevated blood pressure (3) Atrial fibrillation Code(s): I48.91 - UNSPECIFIED ATRIAL FIBRILLATION Status: Chronic Qualifiers: Atrial fibrillation type: unspecified chronic Qualified Code(s): I48.20 - Chronic atrial fibrillation, unspecified; I48.2 - Chronic atrial fibrillation Plan: With pacemaker (4) Pacemaker Code(s): Z95.0 - PRESENCE OF CARDIAC PACEMAKER Status: Chronic (5) Chronic anticoagulation Code(s): Z79.01 - [facility] (CURRENT) USE OF ANTICOAGULANTS Status: Chronic (6) History of CVA (cerebrovascular accident) Code(s): Z86.73 - PRSNL HX OF TIA (TIA), AND CEREB INFRC W/O RESID DEFICITS Status: Chronic Plan: Right-sided weakness (7) Diabetes type 2, controlled Code(s): E11.9 - TYPE 2 DIABETES MELLITUS WITHOUT COMPLICATIONS Status: Chronic Qualifiers: Diabetes mellitus superintendent terminal insulin use: with jail use (8) Glaucoma Code(s): H40.9 - UNSPECIFIED GLAUCOMA Status: Chronic - Plan old records reviewed/req, PT/OT, manager social media Patient was admitted for recurrent fall and generalized weakness, his neuro check remained unremarkable, MRI was not possible because of pacemaker not compatible, patient does not have any new neurological deficit, because of poor social situation patient will benefit from placement, otherwise patient is medically stable with current treatment plan. Paperwork for discharge has been in chart, once longterm home placement arrangement done then will consider discharging him .
[2020-03-17] MEDS: Rivaroxaban 10 MG TAB PO SCH (17:40)
[2020-03-17] MEDS: Mirtazapine 15 MG Soltab PO SCH (21:41)
[2020-03-17] MEDS: Latanoprost 0.005% Ophth Soln 2.5 ml Bottle EA EYE SCH (21:41)
[2020-03-17] MEDS: Atorvastatin Calcium 40 MG TAB PO SCH (21:41)
[2020-03-18] MEDS: Brimonidine Tartrate 0.2% Ophth Soln 5 ml Bottle EA EYE SCH ×2 (09:23→21:00)
[2020-03-18] MEDS: metFORMIN 500 MG TAB PO SCH ×2 (09:27→17:17)
[2020-03-18] MEDS: Ezetimibe 10 MG TAB PO SCH (09:28)
[2020-03-18] MEDS: Famotidine 20 MG TAB PO SCH (09:28)
[2020-03-18] MEDS: Aspirin 81 mg Enteric Coated Tablet PO SCH (09:28)
[2020-03-18] MEDS: Amiodarone 200 MG TAB PO SCH ×2 (09:28→20:59)
[2020-03-18] MEDS: Timolol 0.5% Ophth Soln 5 ml Bottle EA EYE SCH ×2 (09:29→20:59)
[2020-03-18] MEDS: hydrALAZINE 10 MG TAB PO SCH ×3 (10:45→16:23)
[2020-03-18] MEDS: Losartan/Hydrochlorothiazide 100 mg/25 mg Tablet PO SCH (10:45)
[2020-03-18] MEDS: Rivaroxaban 10 MG TAB PO SCH (17:15)
--- NOTE | 2020-03-18 19:00 | PDOC.HOSPP ---
- Subjective Encounter Date: 03/18/20 Encounter Time: 10:30 Subjective: Patient seen and examined for generalized weakness. No new focal deficit. Denies any chest pain or shortness of breath. No overnight events. - Objective Vital Signs & Weight: Vital Signs (12 hours) Temp Pulse Pulse Pulse Resp BP BP 03/18/20 15:34 98.0 F 60 16 03/18/20 11:34 97.6 F 60 16 03/18/20 10:20 59 L 60 115/70 03/18/20 09:29 59 L 128/74 03/18/20 09:11 03/18/20 07:56 97.5 F L 61 19 BP BP Pulse Ox 03/18/20 15:34 109/65 97 03/18/20 11:34 121/71 98 03/18/20 10:20 116/76 03/18/20 09:29 03/18/20 09:11 99 03/18/20 07:56 109/65 99 Weight Weight 135 lb I&O: 03/17/20 03/18/20 03/19/20 06:59 06:59 06:59 Intake Total 720 440 Balance 720 440 Result Diagrams: 03/16/20 04:34 03/16/20 04:34 Additional Labs: Accuchecks 03/18/20 03/18/20 03/18/20 16:40 10:40 05:33 POC Glucose 104 H 123 H 117 H 03/17/20 20:58 POC Glucose 127 H EKG Reviewed by me: Yes (Paced rhythm on telemetry) Hospitalist ROS - Review of Systems Respiratory: denies: cough, dry, shortness of breath, hemoptysis, SOB with excertion, pleuritic pain, sputum, wheezing, other Cardiovascular: denies: chest pain, palpitations, orthopnea, paroxysmal noc. dyspnea, edema, light headedness, other - Medication Medications: Active Medications Generic Name Dose Route Start Last Admin Trade Name Freq PRN Reason Stop Dose Admin Alogliptin Benzoate 12.5 mg 03/17/20 09:00 03/17/20 10:06 Alogliptin 6.25 Mg Tab PO Not Given DAILY SUN[facility] Amiodarone HCl 200 mg 03/16/20 21:00 03/18/20 09:28 Amiodarone 200 Mg Tab PO 200 mg BID SUNG Administration Aspirin 81 mg 03/15/20 09:00 03/18/20 09:28 Aspirin 81 Mg Enteric Coated Tablet PO 81 mg DAILY SUNG Administration Atorvastatin Calcium 80 mg 03/16/20 21:00 03/17/20 21:41 Atorvastatin Calcium 40 Mg Tab PO 80 mg HS SUNG Administration Bisacodyl 10 mg 03/15/20 07:24 03/15/20 10:26 Bisacodyl 5 Mg Tab PO 10 mg DAILYPRN PRN Administration Constipation Brimonidine Tartrate 1 drop 03/16/20 09:00 03/18/20 09:23 Brimonidine Tartrate 0.2% Ophth Soln 5 Ml Bottle EA EYE 1 drop BID SUNG Administration Ezetimibe 10 mg 03/17/20 09:00 03/18/20 09:28 Ezetimibe 10 Mg Tab PO 10 mg DAILY SUNG Administration Famotidine 20 mg 03/15/20 09:00 03/18/20 09:28 Famotidine 20 Mg Tab PO 20 mg DAILY SUNG Administration HCTZ/Losartan Potassium 1 tab 03/17/20 09:00 03/18/20 10:45 Losartan/Hydrochlorothiazide 100 Mg/25 Mg Tablet PO Not Given DAILY SUN[facility] Hydralazine HCl 10 mg 03/18/20 17:00 03/18/20 16:23 Hydralazine 10 Mg Tab PO Not Given BID-WM SUNG Insulin Human Lispro 0 units 03/15/20 07:25 03/16/20 13:24 Humalog 300 Units/3 Ml Vial SC 2 unit .MODERATE SLIDING SC PRN Administration Moderate Correctional Scale Latanoprost 1 drop 03/16/20 21:00 03/17/20 21:41 Latanoprost 0.005% Ophth Soln 2.5 Ml Bottle EA EYE 1 drop HS SUNG Administration Metformin HCl 500 mg 03/16/20 17:00 03/18/20 17:17 Metformin 500 Mg Tab PO 500 mg BID-WM SUNG Administration Mirtazapine 15 mg 03/16/20 21:00 03/17/20 21:41 Mirtazapine 15 Mg Soltab PO 15 mg HS SUNG Administration Rivaroxaban 20 mg 03/17/20 17:00 03/18/20 17:15 Rivaroxaban 10 Mg Tab PO 20 mg 1700 SUNG Administration Timolol Maleate 1 drop 03/16/20 09:00 03/18/20 09:29 Timolol 0.5% Ophth Soln 5 Ml Bottle EA EYE 1 drop BID SUNG Administration Zolpidem Tartrate 5 mg 03/15/20 07:24 03/15/20 20:23 Zolpidem Tartrate 5 Mg Tab PO 5 mg HSPRN PRN Administration Insomnia - Exam General Appearance: NAD Heart: RRR, no gallops Respiratory: no wheezes, no rales Gastrointestinal: non-tender, non-distended, no rigidity Extremities: no cyanosis, no clubbing Hosp A/P - Plan 74-year-old male with diabetes mellitus type 2, hypertension, hyperlipidemia and history of CVA with residual right-sided weakness presented to the hospital on 03/14 with generalized weakness and recurrent falls. His blood pressure in the emergency room was 210/96. CT scan of the brain was negative for acute intracranial process. Chest x-ray was negative. Echocardiogram showed ejection fraction 50 to 55% with diastolic dysfunction, mild concentric left ventricular hypertrophy, mild aortic stenosis with mild aortic and tricuspid regurgitation. Patient was evaluated by physical therapy who recommended rehab versus [facility] facility due to generalized weakness and recurrent falls. He is currently awaiting placement. Generalized weakness/recurrent falls Hypertensive urgency Chronic atrial fibrillation on anticoagulation Diabetes mellitus type 2 with one episode of hypoglycemia Hypertensive heart disease Anxiety Glaucoma Chronic anemia probably due to nutritional deficiency CKD stage III Elevated CK due to recurrent falls on admission Physical deconditioning Plan: Continue anticoagulation with amiodarone. Continue Metformin for diabetes. Will hold alogliptin due to an episode of hypoglycemia. Continue close monitoring. Continue statins. Continue current antihypertensive medication await placement. Patient is stable for discharge.
[2020-03-18] MEDS: Mirtazapine 15 MG Soltab PO SCH (20:59)
[2020-03-18] MEDS: Atorvastatin Calcium 40 MG TAB PO SCH (20:59)
[2020-03-18] MEDS: Latanoprost 0.005% Ophth Soln 2.5 ml Bottle EA EYE SCH (21:00)
[2020-03-19] MEDS: Brimonidine Tartrate 0.2% Ophth Soln 5 ml Bottle EA EYE SCH ×2 (08:45→21:00)
[2020-03-19] MEDS: hydrALAZINE 10 MG TAB PO SCH ×2 (08:46→17:21)
[2020-03-19] MEDS: Losartan/Hydrochlorothiazide 100 mg/25 mg Tablet PO SCH (08:48)
[2020-03-19] MEDS: metFORMIN 500 MG TAB PO SCH ×2 (08:49→17:19)
[2020-03-19] MEDS: Amiodarone 200 MG TAB PO SCH ×2 (08:49→21:01)
[2020-03-19] MEDS: Ezetimibe 10 MG TAB PO SCH (08:50)
[2020-03-19] MEDS: Famotidine 20 MG TAB PO SCH (08:50)
[2020-03-19] MEDS: Timolol 0.5% Ophth Soln 5 ml Bottle EA EYE SCH ×2 (08:50→21:00)
[2020-03-19] MEDS: Rivaroxaban 10 MG TAB PO SCH (17:21)
[2020-03-19] MEDS ORDERED: Acetaminophen 325 MG TAB PO PRN (17:28)
[2020-03-19] MEDS: Atorvastatin Calcium 40 MG TAB PO SCH (21:00)
[2020-03-19] MEDS: Latanoprost 0.005% Ophth Soln 2.5 ml Bottle EA EYE SCH (21:00)
[2020-03-19] MEDS: Mirtazapine 15 MG Soltab PO SCH (21:01)
--- NOTE | 2020-03-19 21:48 | PDOC.HOSPP ---
- Subjective Encounter Date: 03/19/20 Encounter Time: 10:30 Subjective: Patient seen and examined for generalized weakness. Denies any new focal deficit. No chest pain or shortness of breath reported. - Objective Vital Signs & Weight: Vital Signs (12 hours) Temp Pulse Resp BP BP Pulse Ox 03/19/20 21:00 64 03/19/20 20:54 98.3 F 64 16 106/72 97 03/19/20 17:21 62 124/79 03/19/20 14:50 99 F 62 21 H 122/72 98 03/19/20 11:35 98.2 F 61 15 109/70 98 Weight Weight 135 lb I&O: 03/18/20 03/19/20 03/20/20 06:59 06:59 06:59 Intake Total 442 126 7919 Balance 171 487 9926 Result Diagrams: 03/16/20 04:34 03/16/20 04:34 EKG Reviewed by me: Yes (Paced rhythm on telemetry) Hospitalist ROS - Review of Systems Respiratory: denies: cough, dry, shortness of breath, hemoptysis, SOB with ex certion, pleuritic pain, sputum, wheezing, other Cardiovascular: denies: chest pain, palpitations, orthopnea, paroxysmal noc. dyspnea, edema, light headedness, other - Medication Medications: Active Medications Generic Name Dose Route Start Last Admin Trade Name Freq PRN Reason Stop Dose Admin Acetaminophen 650 mg 03/19/20 17:28 03/19/20 18:10 Acetaminophen 325 Mg Tab PO 650 mg Q4H PRN Administration Headache/Fever/Mild Pain (1-3) Alogliptin Benzoate 12.5 mg 03/17/20 09:00 03/17/20 10:06 Alogliptin 6.25 Mg Tab PO Not Given DAILY SUNG Amiodarone HCl 200 mg 03/16/20 21:00 03/19/20 21:01 Amiodarone 200 Mg Tab PO 200 mg BID SUNG Administration Atorvastatin Calcium 80 mg 03/16/20 21:00 03/19/20 21:00 Atorvastatin Calcium 40 Mg Tab PO 80 mg HS SUNG Administration Bisacodyl 10 mg 03/15/20 07:24 03/15/20 10:26 Bisacodyl 5 Mg Tab PO 10 mg DAILYPRN PRN Administration Constipation Brimonidine Tartrate 1 drop 03/16/20 09:00 03/19/20 21:00 Brimonidine Tartrate 0.2% Ophth Soln 5 Ml Bottle EA EYE 1 drop BID SUNG Administration Ezetimibe 10 mg 03/17/20 09:00 03/19/20 08:50 Ezetimibe 10 Mg Tab PO 10 mg DAILY SUNG Administration Famotidine 20 mg 03/15/20 09:00 03/19/20 08:50 Famotidine 20 Mg Tab PO 20 mg DAILY SUNG Administration HCTZ/Losartan Potassium 1 tab 03/17/20 09:00 03/19/20 08:48 Losartan/Hydrochlorothiazide 100 Mg/25 Mg Tablet PO 1 tab DAILY SUNG Administration Hydralazine HCl 10 mg 03/18/20 17:00 03/19/20 17:21 Hydralazine 10 Mg Tab PO 10 mg BID-WM SUNG Administration Insulin Human Lispro 0 units 03/15/20 07:25 03/16/20 13:24 Humalog 300 Units/3 Ml Vial SC 2 unit .MODERATE SLIDING SC PRN Administration Moderate Correctional Scale Latanoprost 1 drop 03/16/20 21:00 03/19/20 21:00 Latanoprost 0.005% Ophth Soln 2.5 Ml Bottle EA EYE 1 drop HS SUNG Administration Metformin HCl 500 mg 03/16/20 17:00 03/19/20 17:19 Metformin 500 Mg Tab PO 500 mg BID-WM SUNG Administration Mirtazapine 15 mg 03/16/20 21:00 03/19/20 21:01 Mirtazapine 15 Mg Soltab PO 15 mg HS SUNG Administration Rivaroxaban 20 mg 03/17/20 17:00 03/19/20 17:21 Rivaroxaban 10 Mg Tab PO 20 mg 1700 SUNG Administration Timolol Maleate 1 drop 03/16/20 09:00 03/19/20 21:00 Timolol 0.5% Ophth Soln 5 Ml Bottle EA EYE 1 drop BID SUNG Administration Zolpidem Tartrate 5 mg 03/15/20 07:24 03/15/20 20:23 Zolpidem Tartrate 5 Mg Tab PO 5 mg HSPRN PRN Administration Insomnia - Exam General Appearance: NAD Neck: supple, no JVD Heart: RRR, no gallops Respiratory: no wheezes, no rales Gastrointestinal: non-tender, normal bowel sounds Neurological: no new deficit Psychiatric: normal affect, A&O x 3 Hosp A/P - Plan DVT proph w/SCDs 74-year-old male with diabetes mellitus type 2, hypertension, hyperlipidemia and history of CVA with residual right-sided weakness presented to the hospital on 03/14 with generalized weakness and recurrent falls. His blood pressure in the emergency room was 210/96. CT scan of the brain was negative for acute intracranial process. Chest x-ray was negative. Echocardiogram showed ejection fraction 50 to 55% with diastolic dysfunction, mild concentric left ventricular hypertrophy, mild aortic stenosis with mild aortic and tricuspid regurgitation. Patient was evaluated by physical therapy who recommended rehab versus long-term facility due to generalized weakness and recurrent falls. He is currently awaiting placement. Generalized weakness/recurrent falls Hypertensive urgency Chronic atrial fibrillation on anticoagulation Diabetes mellitus type 2 with one episode of hypoglycemia Hypertensive heart disease Anxiety Glaucoma Chronic anemia probably due to nutritional deficiency CKD stage III Elevated CK due to recurrent falls on admission Physical deconditioning Plan: Patient is awaiting placement. Continue sliding scale with metformin. Continue amiodarone with an anticoagulation. Continue current antihypertensive medication. Continue physical therapy. Continue other medications as above. DC to long-term facility when accepted. Plan discussed with the family at the bedside.
[2020-03-20] MEDS: Brimonidine Tartrate 0.2% Ophth Soln 5 ml Bottle EA EYE SCH (10:20)
[2020-03-20] MEDS: Timolol 0.5% Ophth Soln 5 ml Bottle EA EYE SCH (10:22)
[2020-03-20] MEDS: Amiodarone 200 MG TAB PO SCH (10:24)
[2020-03-20] MEDS: Losartan/Hydrochlorothiazide 100 mg/25 mg Tablet PO SCH (10:24)
[2020-03-20] MEDS: Ezetimibe 10 MG TAB PO SCH (10:24)
[2020-03-20] MEDS: hydrALAZINE 10 MG TAB PO SCH (10:25)
[2020-03-20] MEDS: Famotidine 20 MG TAB PO SCH (10:25)
[2020-03-20] MEDS: metFORMIN 500 MG TAB PO SCH (10:25)
[2020-03-20 11:47] VITALS: BP 97/56; TEMP 97.8
--- NOTE | 2020-03-20 20:45 | PDOC.DS.DS ---
Provider - Provider Date of Admission: 03/14/20 11:47 Date of Discharge: 03/20/20 Admitting Provider: Mark Wagner MD Primary Care Physician: NO PCP PROVIDER Course - Hospital Course Hospital Course: 74-year-old male with diabetes mellitus type 2, hypertension, hyperlipidemia and history of CVA with residual right-sided weakness presented to the hospital on 03/14 with generalized weakness and recurrent falls. His blood pressure in the emergency room was 210/96. CT scan of the brain was negative for acute intracranial process. Chest x-ray was negative. Echocardiogram showed ejection fraction 50 to 55% with diastolic dysfunction, mild concentric left ventricular hypertrophy, mild aortic stenosis with mild aortic and tricuspid regurgitation. Patient was evaluated by physical therapy who recommended nursing home facility due to generalized weakness and recurrent falls. Patient discharge on 03/20 to nursing home facility. In Final diagnoses: Generalized weakness/recurrent falls Hypertensive urgency Chronic atrial fibrillation on anticoagulation Diabetes mellitus type 2 with one episode of hypoglycemia Hypertensive heart disease Anxiety Glaucoma Chronic anemia probably due to nutritional deficiency CKD stage III Elevated CK due to recurrent falls on admission Physical deconditioning Resuscitation Status: 03/14/20 12:53 Resuscitation Status Routine Resuscitation Status: FULL: Full Resuscitation - Labs Lab Results: 03/16/20 04:34 03/16/20 04:34 - Physical Exam Vitals: Vital Signs (12 hours) Temp Pulse Resp BP BP Pulse Ox 03/20/20 11:47 97.8 F 60 14 97/56 L 97 03/20/20 10:25 62 111/69 03/20/20 10:22 70 100 Weight Weight 135 lb Physical Exam: The patient was seen and examined on the day of discharge. Plan - Discharge Medications Home Medications: Medication Instructions Recorded Confirmed Type Amiodarone [Cordarone] 200 mg PO BID 03/15/20 03/15/20 History Atorvastatin Calcium 80 mg PO DAILY 03/15/20 03/15/20 History Brimonidine Tartrate/Timolol 1 drop EA EYE BID 03/15/20 03/15/20 History [Combigan 0.2%-0.5% Eye Drops] Ezetimibe [Zetia] 10 mg PO DAILY 03/15/20 03/15/20 History Latanoprost/Pf [Latanoprost 0.005% 1 drop EA EYE HS 03/15/20 03/15/20 History Eye Drop] Mirtazapine 15 mg PO HS 03/15/20 03/15/20 History Olmesartan/Hydrochlorothiazide 1 each PO DAILY 03/15/20 03/15/20 History [Olmesartan-Hctz 40-25 mg Tab] Rivaroxaban [Xarelto] 20 mg PO DAILY 03/15/20 03/15/20 History hydrALAZINE [Apresoline] 10 mg PO BID-WM 03/15/20 03/15/20 History metFORMIN [Glucophage] 500 mg PO TID-WM 03/15/20 03/17/20 History sitaGLIPtin Phosphate [Januvia] 50 mg PO DAILY 03/15/20 03/15/20 History Acetaminophen [Tylenol Regular 650 mg PO Q4H PRN tab 03/20/20 Rx Strength] Sennosides/Docusate Sodium 2 tab PO DAILY tab 03/20/20 Rx [Senokot S] Allergies: No Known Allergies Allergy (Unverified 03/14/20 13:31) - Discharge Instructions Discharge Instructions:: discharge to [facility] Activity:: Activity as Tolerated Nourishment:: Diabetic Diet Therapies:: Occupational Therapy, Physical Therapy Equipment/Supplies:: Not Applicable IV Therapy:: Not Applicable - Follow up Plan Referrals: Artur Kaur MD [Active] - 03/31/20 8:00 am (HOSPITAL F/U W/ DR. KAUR ON 03/31 @ 8AM, FIRST [facility]AILABLE [facility]) Kwadwo Price MD [Active] - 7 Days Disposition: HALFWAY FACILITY Quality - Care Measures CORE MEASURES:: N/A
== END 2020-03-20 15:46 | DRG 305 ==
LOC: ERS 10:07 → ERHOLD 11:47 → 2SE 15:51
PROVIDERS: ADMIT Student in an Organized Health Care Education/Training Program; ATTEND Internal Medicine
DX: I16.0 Hypertensive urgency (principal); I69.351 Hemiplegia and hemiparesis following cerebral infarction affecting right dominant side; I48.20 Chronic atrial fibrillation, unspecified; R29.6 Repeated falls; Z20.828 Contact with and (suspected) exposure to other viral communicable diseases; E11.22 Type 2 diabetes mellitus with diabetic chronic kidney disease; I12.9 Hypertensive chronic kidney disease with stage 1 through stage 4 chronic kidney disease, or unspecified chronic kidney disease; H54.8 Legal blindness, as defined in USA; E11.649 Type 2 diabetes mellitus with hypoglycemia without coma; I08.2 Rheumatic disorders of both aortic and tricuspid valves; D53.9 Nutritional anemia, unspecified; F41.9 Anxiety disorder, unspecified; N18.30 Chronic kidney disease, stage 3 unspecified; R53.81 Other malaise; I11.9 Hypertensive heart disease without heart failure; H40.9 Unspecified glaucoma; E78.5 Hyperlipidemia, unspecified; Z95.0 Presence of cardiac pacemaker; Z79.01 Long term (current) use of anticoagulants
CPT/HCPCS: 36415; 36416; 70450; 71045; 80048; 80053; 80061; 82550; 83036; 84484; 85025; 85610; 85730; 87635; 93005; 93306; J1650; J2060; U0003